=== PATIENT | male | born 1955 | race Caucasian/White ===

== ENCOUNTER 2020-08-10 12:15 | Outpatient (RCR) | payer MEDICARE, OTHER, SELFPAY | END 2020-10-11 23:59 | LOC: IMMUN 12:15 | PROVIDERS: PCP Internal Medicine; Referring Provider Family Medicine; Visit Provider Family Medicine | DX: Z23 Encounter for immunization (principal) | CPT/HCPCS: 0001A; 0002A; 91300 ==